=== PATIENT | male | born 1960 | race Asian ===

== ENCOUNTER 2024-01-12 05:55 | Day surgery (SDC) | payer MEDICAID ==
[~2024-01-12] VITALS: Ht 170.2 cm; Wt 90.7 kg
[2024-01-12] MEDS ORDERED: MIDAZOLAM 5 MG/5 ML VIAL ONE (07:26)
[2024-01-12] MEDS ORDERED: fentaNYL citrate 0.05 MG/ML VIAL ONE (07:26)
[2024-01-12] MEDS ORDERED: diphenhydrAMINE 50 MG/ML VIAL ONE (07:27)
[2024-01-12] MEDS ORDERED: LIDOCAINE 2% 100 MG/5 ML UJET TP ONE (07:27)
[2024-01-12] MEDS: MIDAZOLAM 2 MG/2 ML VIAL IV ONE (07:35)
[2024-01-12] MEDS: fentaNYL citrate 0.05 MG/ML VIAL IVP ONE (07:36)
== END 2024-01-12 09:10 | disposition home or self-care (01) ==
LOC: MOR 05:55 → MMU 06:15 → MOR 09:10
PROVIDERS: ATTEND Internal Medicine
DX: R19.4 Change in bowel habit (principal); K30 Functional dyspepsia; D12.0 Benign neoplasm of cecum; D12.3 Benign neoplasm of transverse colon; D12.6 Benign neoplasm of colon, unspecified; K29.50 Unspecified chronic gastritis without bleeding; I10 Essential (primary) hypertension; E78.5 Hyperlipidemia, unspecified; M10.9 Gout, unspecified; K83.8 Other specified diseases of biliary tract; F32.A Depression, unspecified; K80.20 Calculus of gallbladder without cholecystitis without obstruction; K76.0 Fatty (change of) liver, not elsewhere classified; E13.43 Other specified diabetes mellitus with diabetic autonomic (poly)neuropathy; Z79.899 Other long term (current) drug therapy; Z98.890 Other specified postprocedural states
CPT/HCPCS: 43239; 45385; 82948; J2250; J3010; 88305; 88312; 88313; 88342; J1200